=== PATIENT | female | born 1980 ===

== ENCOUNTER 2020-07-14 05:12 | Inpatient (IN) | payer OTHER ==
[2020-07-14] MEDS: Lactated Ringers 1,000 ML IV SCH ×2 (05:40→14:35)
[2020-07-14] MEDS ORDERED: Sodium Chloride 0.9% 2.5 ML Syringe FLUSH PRN (06:16)
[2020-07-14] MEDS ORDERED: Misoprostol 200 MCG Tab PO PRN (06:16)
[2020-07-14] MEDS ORDERED: Water For Irrigation,Sterile 1,000 ML Container IRR PRN (06:16)
[2020-07-14] MEDS ORDERED: Nalbuphine 10 MG/1 ML Vial IVPUSH PRN (06:16)
[2020-07-14] MEDS ORDERED: Terbutaline 1 MG/ML SDV SUBCUT PRN (06:16)
[2020-07-14] MEDS ORDERED: Ondansetron 4 MG/2 ML SDV IVPUSH PRN (06:16)
[2020-07-14] MEDS ORDERED: Sodium Chloride 0.9% 10 ML Syringe FLUSH PRN (06:16)
[2020-07-14] MEDS ORDERED: Carboprost Tromethamine 250 MCG/1 ML Amp IM PRN (06:16)
[2020-07-14] MEDS ORDERED: Tranexamic Acid 1,000 MG in Sodium Chloride 0.9% 100 ML IV PRN (06:16)
[2020-07-14] MEDS ORDERED: Butorphanol 1 MG/ML SDV IVPUSH PRN (06:16)
[2020-07-14] MEDS ORDERED: Lidocaine 1% 50 ML MDV INJECT PRN (06:16)
[2020-07-14] MEDS ORDERED: Methylergonovine 0.2 MG/1 ML Amp IM PRN (06:16)
[2020-07-14] MEDS ORDERED: Misoprostol 25 MCG (1/4 of 100 MCG) Tab VAG PRN ×2 (06:16)
[2020-07-14] MEDS ORDERED: Sodium Chloride 0.9% 10 ML SDV IV PRN (06:16)
[2020-07-14] MEDS ORDERED: Oxytocin/0.9 % Sodium Chloride 30 UNIT/500 ML BAG IV SCH ×2 (06:30)
[2020-07-14] MEDS ORDERED: Misoprostol 25 MCG (1/4 of 100 MCG) Tab PO ONE (06:41)
[2020-07-14] MEDS ORDERED: Misoprostol 25 MCG (1/4 of 100 MCG) Tab PO PRN (06:43)
[2020-07-14] MEDS ORDERED: fentaNYL 100 MCG/2 ML SDV ONE ×2 (11:07→21:14)
[2020-07-14] MEDS ORDERED: Ropivacaine HCl/PF 100 ML ONE ×2 (11:07→21:15)
--- NOTE | 2020-07-14 11:28 | PCM.PREANE ---
Preanesthetic Assessment - Anesthesia/Transfusion/Family Hx Anesthesia History: Prior Anesthesia Without Reaction Family History of Anesthesia Reaction: No - Physical Assessment NPO Status Date: 07/14/20 NPO Status Time: 10:00 Height: 1.75 m Weight: 120.202 kg ASA Class: 2 - Lab Values: Laboratory Last Values WBC 7.88 K/uL (4.0-11.0) 07/14/20 05:40 RBC 3.96 M/uL (4.30-5.90) L 07/14/20 05:40 Hgb 11.7 g/dL (12.0-16.0) L 07/14/20 05:40 Hct 35.5 % (36.0-46.0) L 07/14/20 05:40 MCV 89.6 fL (80.0-98.0) 07/14/20 05:40 MCH 29.5 pg (27.0-32.0) 07/14/20 05:40 MCHC 33.0 g/dL (31.0-37.0) 07/14/20 05:40 RDW Std Deviation 39.3 fl (28.0-62.0) 07/14/20 05:40 RDW Coeff of Deyanira 12 % (11.0-15.0) 07/14/20 05:40 Plt Count 243 K/uL (150-400) 07/14/20 05:40 MPV 10.80 fL (7.40-12.00) 07/14/20 05:40 Nucleated RBC % 0.0 /100WBC 07/14/20 05:40 Nucleated RBCs # 0 K/uL 07/14/20 05:40 Blood Type AB POSITIVE 07/14/20 05:40 Antibody Screen NEGATIVE 07/14/20 05:40 - Allergies Allergies/Adverse Reactions: Allergies Allergy/AdvReac Type Severity Reaction Status Date / Time Penicillins Allergy Mild Hives Verified 06/30/20 16:36 - Acknowledgements Anesthesia Type Planned: Epidural Pt an Appropriate Candidate for the Planned Anesthesia: Yes Alternatives and Risks of Anesthesia Discussed w Pt/Guardian: Yes Pt/Guardian Understands and Agrees with Anesthesia Plan: Yes PreAnesthesia Questionnaire - Past Health History Medical/Surgical History: Denies Medical/Surgical History [employer] History: Reports: Fibroids - Infectious Disease History Infectious Disease History: Reports: Chicken Pox - SUBSTANCE USE Tobacco Use Status *Q: Never Tobacco User Tobacco Use Within Last Twelve Months: No Second Hand Smoke Exposure: No Recreational Drug Use History: No - HOME MEDS Home Medications: Home Meds Vits #93/Iron Fum/FA [ Formula Tablet] 1 each PO BEDTIME 06/16/20 [History] - CURRENT (IN HOUSE) MEDS Current Meds: Current Medications Carboprost Tromethamine (Hemabate Ds) 250 mcg IM ASDIRECTED PRN PRN Reason: Post Hemorrhage Hydroxyzine HCl (Atarax) 50 mg PO BEDTIME ONE Stop: 07/14/20 21:01 Oxytocin/Sodium Chloride (Oxytocin 30 Unit/500 Ml-Ns) 30 unit in 500 mls @ 999 mls/hr IV TITRATE JACQUELINE Tranexamic Acid 1,000 mg/ (Sodium Chloride) 110 mls @ 660 mls/hr IV ONETIME PRN PRN Reason: Bleeding Oxytocin/Sodium Chloride (Oxytocin 30 Unit/500 Ml-Ns) 30 unit in 500 mls @ 2 mls/hr IV TITRATE JACQUELINE; Protocol Lactated Ringer's (Ringers, Lactated) 1,000 mls @ 150 mls/hr IV ASDIRECTED JACQUELINE Last Admin: 07/14/20 05:40 Dose: 150 mls/hr Documented by: Lidocaine HCl (Xylocaine 1%) 50 ml INJECT ONETIME PRN PRN Reason: Laceration repair Methylergonovine Maleate (Methergine) 0.2 mg IM ASDIRECTED PRN PRN Reason: Post Hemorrhage Misoprostol (Cytotec) 200 mcg PO ONETIME PRN PRN Reason: Post Hemorrhage Misoprostol (Cytotec) 25 mcg PO Q4H PRN PRN Reason: Cervical Ripening Misoprostol (Cytotec) 25 mcg VAG Q4H JACQUELINE Nalbuphine HCl (Nubain) 10 mg IVPUSH Q1H PRN PRN Reason: Pain (severe 7-10) Ondansetron HCl (Zofran) 4 mg IVPUSH Q6H PRN PRN Reason: Nausea/Vomiting Sodium Chloride (Saline Flush) 10 ml FLUSH ASDIRECTED PRN PRN Reason: Keep Vein Open Sodium Chloride (Saline Flush) 2.5 ml FLUSH ASDIRECTED PRN PRN Reason: Keep Vein Open Sodium Chloride (Normal Saline) 10 ml IV ASDIRECTED PRN PRN Reason: IV Use Sterile Water (Sterile Water For Irrigation) 1,000 ml IRR ASDIRECTED PRN PRN Reason: delivery Terbutaline Sulfate (Brethine) 0.25 mg SUBCUT ASDIRECTED PRN PRN Reason: Tacysystole Discontinued Medications Fentanyl (Sublimaze) Confirm Administered Dose 100 mcg .ROUTE .STK-MED ONE Stop: 07/14/20 11:08 Ropivacaine (Naropin 0.2%) Confirm Administered Dose 100 mls @ as directed .ROUTE .STK-MED ONE Stop: 07/14/20 11:08 Misoprostol (Cytotec) 25 mcg VAG ONETIME PRN PRN Reason: Cervical Ripening Misoprostol (Cytotec) 25 mcg VAG Q4H PRN PRN Reason: Cervical Ripening Misoprostol (Cytotec) 25 mcg PO ONETIME ONE Stop: 07/14/20 06:42 Last Admin: 07/14/20 07:44 Dose: 25 mcg Documented by:
--- NOTE | 2020-07-14 11:31 | PCM.PRNOTE ---
- Free Text/Narrative Note: Anes Note Patient requests epidural for L&D. Sitting position, level L3-L4 midline approach. Sterile technique. Chloraprep scrub to lumbar area. Sterile fenestrated drape applied. Epidural space easily achieved single attempt with ease using DONOVAN technique. DONOVAN at 3 cm. Cath threaded 5 cm with ease. Test 1118 3 cc 1.5% lido with epi negative. Load 1121 10 cc 0.2% ropiviciane with 1 mcg cc fentnayl in slow divided doses. 1125 Pump started with 90 cc same solution. Rate is 8 cc hr with 6 cc q 20 min prn bolus. Sydni well. Time with patient [id number] Silvio Boucher CRNA
[2020-07-14] MEDS ORDERED: Misoprostol 25 MCG (1/4 of 100 MCG) Tab VAG SCH (11:45)
--- NOTE | 2020-07-14 11:47 | PCM.LDHP ---
L&D History of Present Illness - General Date of Service: 07/14/20 Admit Problem/Dx: Patient Status Order with Admit Dx/Problem 07/14/20 06:33 Patient Status [ADT] Routine Admission Diagnosis/Problem Admission Diagnosis/Problem Source of Information: Patient History Limitations: Reports: No Limitations - History of Present Illness Introduction:: 39yo at 38w GA admitted for IOL. Patient has a h/o demise at 39wGA. This pregnacy was also c/b decreased movement and patient has had weekly BPP and NST. Today she declines VB, LOF or Ctx. Good FM labs: AB+, Abs screen -, RI, HepB NR, GBS - - Related Data Allergies/Adverse Reactions: Allergies Allergy/AdvReac Type Severity Reaction Status Date / Time Penicillins Allergy Mild Hives Verified 06/30/20 16:36 Home Medications: Home Meds Vits #93/Iron Fum/FA [ Formula Tablet] 1 each PO BEDTIME 06/16/20 [History] Past Medical History - Past Health History Medical/Surgical History: Denies Medical/Surgical History [employer] History: Reports: Fibroids - Infectious Disease History Infectious Disease History: Reports: Chicken Pox Social & Family History - Family History Family Medical History: No Pertinent Family History - Tobacco Use Tobacco Use Status *Q: Never Tobacco User Second Hand Smoke Exposure: No - Caffeine Use Caffeine Use: Reports: None - Recreational Drug Use Recreational Drug Use: No H&P Review of Systems - Review of Systems: Review Of Systems: See Below General: Reports: No Symptoms HEENT: Reports: No Symptoms Pulmonary: Reports: No Symptoms Cardiovascular: Reports: No Symptoms Gastrointestinal: Reports: No Symptoms Genitourinary: Reports: No Symptoms Musculoskeletal: Reports: No Symptoms Skin: Reports: No Symptoms Psychiatric: Reports: No Symptoms Neurological: Reports: No Symptoms Hematologic/Lymphatic: Reports: No Symptoms Immunologic: Reports: No Symptoms L&D Exam - Exam Exam: See Below - Vital Signs Weight: 120.202 kg - OB Specific Contraction Intensity: Mild Movement: Active Heart Tones: Present Heart Rate (FHR) Variability: Moderate (6-25 bmp) Presentation: Vertex Estimated Weight: 7lbs - Weeks Score Weeks Score Cervix Position: Midposition Weeks Score Consistency: Medium Weeks Score Effacement: 0-30% Weeks Score Dilation: 1-2 cm Weeks Score Infant's Station: -3 Weeks Score Total: 3 - Exam General: Alert, Oriented HEENT: Conjunctiva Clear, Mucosa Moist & [place] Lungs: Normal Respiratory Effort Cardiovascular: Regular Rate GI/Abdominal Exam: Soft, Non-Tender Extremities: Normal Inspection Psychiatric: Alert, Normal Affect, Normal Mood - Patient Data Lab Results Last 24 hrs: Laboratory Results - last 24 hr 07/14/20 07/14/20 Range/Units 05:40 05:40 WBC 7.88 (4.0-11.0) K/uL RBC 3.96 L (4.30-5.90) M/uL Hgb 11.7 L (12.0-16.0) g/dL Hct 35.5 L (36.0-46.0) % MCV 89.6 (80.0-98.0) fL MCH 29.5 (27.0-32.0) pg MCHC 33.0 (31.0-37.0) g/dL RDW Std Deviation 39.3 (28.0-62.0) fl RDW Coeff of Deyanira 12 (11.0-15.0) % Plt Count 243 (150-400) K/uL MPV 10.80 (7.40-12.00) fL Nucleated RBC % 0.0 /100WBC Nucleated RBCs # 0 K/uL Blood Type AB POSITIVE Antibody Screen NEGATIVE Result Diagrams: 07/14/20 05:40 - Problem List (1) Term SNOMED Code(s): 29557917 ICD Code: Z34.90 - ENCNTR FOR SUPRVSN OF NORMAL , UNSP, UNSP TRIMESTER Status: Acute Current Visit: Yes (2) Elective induction of labor planned SNOMED Code(s): 768994673 ICD Code: SIO7718 - Status: Acute Current Visit: Yes Problem List Initiated/Reviewed/Updated: Yes Orders Last 24hrs: Active Orders 24 hr Category Date Time Status Patient Status [ADT] Routine ADT 07/14/20 06:33 Active Bedrest Bathroom Privileges [RC] ASDIRECTED Care 07/14/20 06:33 Active Communication Order [RC] ASDIRECTED Care 07/14/20 06:33 Active Communication Order [RC] ASDIRECTED Care 07/14/20 06:33 Active Communication Order [RC] ASDIRECTED Care 07/14/20 06:33 Active Heart Tones [RC] CONTINUOUS Care 07/14/20 06:33 Active Non Stress Test [RC] PER UNIT ROUTINE Care 07/14/20 06:33 Active May Shower [RC] ASDIRECTED Care 07/14/20 06:33 Active Notify Provider [RC] PRN Care 07/14/20 06:33 Active Notify Provider [RC] PRN Care 07/14/20 06:33 Active Notify Provider [RC] PRN Care 07/14/20 06:33 Active Notify Provider [RC] STAT Care 07/14/20 06:33 Active Oxygen Therapy [RC] ASDIRECTED Care 07/14/20 06:33 Active Up ad Halima [RC] ASDIRECTED Care 07/14/20 06:33 Active Vaginal Exam [RC] PRN Care 07/14/20 06:33 Active Vaginal Exam [RC] PRN Care 07/14/20 06:33 Active Vital Signs [RC] PER UNIT ROUTINE Care 07/14/20 06:33 Active Vital Signs [RC] PER UNIT ROUTINE Care 07/14/20 06:33 Active RPR (SYPHILIS SERO) W/ RFLX [REF] Routine Lab 07/14/20 05:40 Received Carboprost Tromethamine [Hemabate DS] Med 07/14/20 06:16 Active 250 mcg IM ASDIRECTED PRN Lactated Ringers [Ringers, Lactated] 1,000 ml Med 07/14/20 06:30 Active IV ASDIRECTED Lidocaine 1% [Xylocaine 1%] Med 07/14/20 06:16 Active 50 ml INJECT ONETIME PRN Methylergonovine [Methergine] Med 07/14/20 06:16 Active 0.2 mg IM ASDIRECTED PRN Nalbuphine [Nubain] Med 07/14/20 06:16 Active 10 mg IVPUSH Q1H PRN Ondansetron [Zofran] Med 07/14/20 06:16 Active 4 mg IVPUSH Q6H PRN Oxytocin/0.9 % Sodium Chloride [Oxytocin 30 Unit/500 ML Med 07/14/20 06:30 Active -NS] 30 unit in 500 ml IV TITRATE Oxytocin/0.9 % Sodium Chloride [Oxytocin 30 Unit/500 ML Med 07/14/20 06:30 Active -NS] 30 unit in 500 ml IV TITRATE Sodium Chloride 0.9% [Normal Saline] Med 07/14/20 06:16 Active 10 ml IV ASDIRECTED PRN Sodium Chloride 0.9% [Saline Flush] Med 07/14/20 06:16 Active 10 ml FLUSH ASDIRECTED PRN Sodium Chloride 0.9% [Saline Flush] Med 07/14/20 06:16 Active 2.5 ml FLUSH ASDIRECTED PRN Terbutaline [Brethine] Med 07/14/20 06:16 Active 0.25 mg SUBCUT ASDIRECTED PRN Tranexamic Acid [Cyklokapron] 1,000 mg Med 07/14/20 06:16 Active Sodium Chloride 0.9% [Normal Saline] 100 ml IV ONETIME Water For Irrigation,Sterile [Sterile Water for Med 07/14/20 06:16 Active Irrigation] 1,000 ml IRR ASDIRECTED PRN hydrOXYzine HCL [Atarax] Med 07/14/20 21:00 Once 50 mg PO BEDTIME ONE miSOPROStoL [Cytotec] Med 07/14/20 06:16 Active 200 mcg PO ONETIME PRN miSOPROStoL [Cytotec] Med 07/14/20 06:43 Active 25 mcg PO Q4H PRN miSOPROStoL [Cytotec] Med 07/14/20 11:45 Active 25 mcg VAG Q4H Scalp Electrode [WOMSER] Per Unit Routine Oth 07/14/20 06:33 Ordered Medication Administration Instruction [OM.PC] Q3H Oth 07/14/20 06:45 Ordered Peripheral IV Insertion Adult [OM.PC] Routine Oth 07/14/20 06:33 Ordered Resuscitation Status Routine Resus Stat 07/14/20 06:16 Ordered Medication Orders Carboprost Tromethamine (Hemabate Ds) 250 mcg IM ASDIRECTED PRN PRN Reason: Post Hemorrhage Hydroxyzine HCl (Atarax) 50 mg PO BEDTIME ONE Stop: 07/14/20 21:01 Oxytocin/Sodium Chloride (Oxytocin 30 Unit/500 Ml-Ns) 30 unit in 500 mls @ 999 mls/hr IV TITRATE JACQUELINE Tranexamic Acid 1,000 mg/ (Sodium Chloride) 110 mls @ 660 mls/hr IV ONETIME PRN PRN Reason: Bleeding Oxytocin/Sodium Chloride (Oxytocin 30 Unit/500 Ml-Ns) 30 unit in 500 mls @ 2 mls/hr IV TITRATE JACQUELINE; Protocol Lactated Ringer's (Ringers, Lactated) 1,000 mls @ 150 mls/hr IV ASDIRECTED JACQUELINE Last Admin: 07/14/20 05:40 Dose: 150 mls/hr Documented by: ANDRÉS Lidocaine HCl (Xylocaine 1%) 50 ml INJECT ONETIME PRN PRN Reason: Laceration repair Methylergonovine Maleate (Methergine) 0.2 mg IM ASDIRECTED PRN PRN Reason: Post Hemorrhage Misoprostol (Cytotec) 200 mcg PO ONETIME PRN PRN Reason: Post Hemorrhage Misoprostol (Cytotec) 25 mcg PO Q4H PRN PRN Reason: Cervical Ripening Misoprostol (Cytotec) 25 mcg VAG Q4H JACQUELINE Nalbuphine HCl (Nubain) 10 mg IVPUSH Q1H PRN PRN Reason: Pain (severe 7-10) Ondansetron HCl (Zofran) 4 mg IVPUSH Q6H PRN PRN Reason: Nausea/Vomiting Sodium Chloride (Saline Flush) 10 ml FLUSH ASDIRECTED PRN PRN Reason: Keep Vein Open Sodium Chloride (Saline Flush) 2.5 ml FLUSH ASDIRECTED PRN PRN Reason: Keep Vein Open Sodium Chloride (Normal Saline) 10 ml IV ASDIRECTED PRN PRN Reason: IV Use Sterile Water (Sterile Water For Irrigation) 1,000 ml IRR ASDIRECTED PRN PRN Reason: delivery Terbutaline Sulfate (Brethine) 0.25 mg SUBCUT ASDIRECTED PRN PRN Reason: Tacysystole Assessment/Plan Comment:: 39yo here for IOL secondary to h/o demise at 39wGA and decreased FM this . Reactive strip. Weeks score of 3 Discussed the labor induction processed, including the off-label use of cytotec. Discussed risks and benefits. Patient agreeable to the plan. Will start with cytotec, then oxytocin PRN Epidural PRN
[2020-07-14] MEDS ORDERED: hydrOXYzine HCl 25 MG Tab PO ONE (21:00)
--- NOTE | 2020-07-14 21:28 | PCM.PRNOTE ---
- Free Text/Narrative Note: Anes Note I was called to refill the epidural infusion. A new 100 cc bag of 0.2% ropiviciane with 1 mcg/cc fentanyl was placed. Rate is 8 cc hr with 6 cc q 20 min prn bolus. Patient reports excellent analgesia. Time with patient [id number] Silvio Boucher CRNA
[2020-07-15] MEDS ORDERED: Ibuprofen 400 MG Tab PO PRN (00:56)
[2020-07-15] MEDS ORDERED: Witch Hazel Medicated Pads 40/Jar TOP PRN (00:56)
[2020-07-15] MEDS ORDERED: oxyCODONE 5 MG Tab PO PRN (00:56)
[2020-07-15] MEDS ORDERED: Lanolin 100% Cream 7 GM Tube TOP PRN (00:56)
[2020-07-15] MEDS ORDERED: Docusate Sodium 100 MG Cap PO PRN (00:56)
[2020-07-15] MEDS ORDERED: Benzocaine/Menthol 20%-0.5% Spray 78 GM Cannister TOP PRN (00:56)
[2020-07-15] MEDS ORDERED: Bisacodyl 10 MG Supp RECTAL PRN (00:56)
[2020-07-15] MEDS ORDERED: Acetaminophen 500 MG Tab PO PRN ×2 (00:56)
--- NOTE | 2020-07-15 07:52 | PCM48HPAN ---
Post Anesthesia Note - EVALUATION WITHIN 48HRS OF ANESTHETIC Vital Signs in Normal Range: Yes Patient Participated in Evaluation: Yes Respiratory Function Stable: Yes Airway Patent: Yes Cardiovascular Function Stable: Yes Hydration Status Stable: Yes Pain Control Satisfactory: Yes Nausea and Vomiting Control Satisfactory: Yes Mental Status Recovered: Yes - COMMENTS/OBSERVATIONS Free Text/Narrative:: full sensation in legs bilaterally
[2020-07-15] MEDS: Ibuprofen 800 MG Tab PO PRN (08:23)
--- NOTE | 2020-07-15 12:13 | PCM.PNPP ---
- General Info Date of Service: 07/15/20 Admission Dx/Problem (Free Text): Patient Status Order with Admit Dx/Problem 07/14/20 06:33 Patient Status [ADT] Routine Admission Diagnosis/Problem Admission Diagnosis/Problem Subjective Update: Doing well; reports bottle feeding and bonding well with baby; ambulating, urinating, and tolerating diet; small lochia rubra. NO concerns/questions at this time. Functional Status: Reports: Pain Controlled, Tolerating Diet, Ambulating, Urinating - Review of Systems General: Reports: No Symptoms HEENT: Reports: No Symptoms Pulmonary: Reports: No Symptoms Cardiovascular: Reports: No Symptoms Gastrointestinal: Reports: No Symptoms Genitourinary: Reports: No Symptoms Musculoskeletal: Reports: No Symptoms Skin: Reports: No Symptoms Neurological: Reports: No Symptoms Psychiatric: Reports: No Symptoms - General Info Date of Service: 07/15/20 - Patient Data Vital Signs - Most Recent: Last Vital Signs Temp 97.5 F 07/15/20 00:56 Pulse 82 07/15/20 00:56 Resp 18 07/15/20 00:56 BP 135/80 07/15/20 00:56 Pulse Ox 95 07/15/20 00:56 Weight - Most Recent: 265 lb I&O - Last 24 Hours: Intake & Output 07/14/20 07/15/20 07/15/20 22:59 06:59 14:59 Intake Total 1390 Balance 1390 Med Orders - Current: Current Medications Acetaminophen (Tylenol Extra Strength) 500 mg PO Q4H PRN PRN Reason: Pain Acetaminophen (Tylenol Extra Strength) 1,000 mg PO Q4H PRN PRN Reason: Pain Benzocaine/Menthol (Dermoplast Pain Relief 20%-0.5% Valm[place]) 78 gm TOP ASDIRECTED PRN PRN Reason: Perineal Comfort Measure Last Admin: 07/15/20 03:01 Dose: 1 bottle Documented by: Bisacodyl (Dulcolax) 10 mg RECTAL ONETIME PRN PRN Reason: Constipation Carboprost Tromethamine (Hemabate Ds) 250 mcg IM ASDIRECTED PRN PRN Reason: Post Hemorrhage Docusate Sodium (Colace) 100 mg PO BID PRN PRN Reason: Constipation Emollient Ointment (Lansinoh Hpa) 0 gm TOP ASDIRECTED PRN PRN Reason: Sore Nipples Oxytocin/Sodium Chloride (Oxytocin 30 Unit/500 Ml-Ns) 30 unit in 500 mls @ 999 mls/hr IV TITRATE JACQUELINE Tranexamic Acid 1,000 mg/ (Sodium Chloride) 110 mls @ 660 mls/hr IV ONETIME PRN PRN Reason: Bleeding Oxytocin/Sodium Chloride (Oxytocin 30 Unit/500 Ml-Ns) 30 unit in 500 mls @ 2 mls/hr IV TITRATE JACQUELINE; Protocol Last Titration: 07/15/20 00:23 Dose: 999 munits/min, 999 mls/hr Documented by: Lactated Ringer's (Ringers, Lactated) 1,000 mls @ 150 mls/hr IV ASDIRECTED JACQUELINE Last Infusion: 07/15/20 00:45 Dose: Infused Documented by: Ibuprofen (Motrin) 400 mg PO Q4H PRN PRN Reason: Pain Ibuprofen (Motrin) 800 mg PO Q6H PRN PRN Reason: Pain Last Admin: 07/15/20 08:23 Dose: 800 mg Documented by: Lidocaine HCl (Xylocaine 1%) 50 ml INJECT ONETIME PRN PRN Reason: Laceration repair Methylergonovine Maleate (Methergine) 0.2 mg IM ASDIRECTED PRN PRN Reason: Post Hemorrhage Misoprostol (Cytotec) 200 mcg PO ONETIME PRN PRN Reason: Post Hemorrhage Misoprostol (Cytotec) 25 mcg PO Q4H PRN PRN Reason: Cervical Ripening Misoprostol (Cytotec) 25 mcg VAG Q4H [facility] Nalbuphine HCl (Nubain) 10 mg IVPUSH Q1H PRN PRN Reason: Pain (severe 7-10) Ondansetron HCl (Zofran) 4 mg IVPUSH Q6H PRN PRN Reason: Nausea/Vomiting Oxycodone HCl (Oxycodone) 5 mg PO Q2H PRN PRN Reason: Pain Sodium Chloride (Saline Flush) 10 ml FLUSH ASDIRECTED PRN PRN Reason: Keep Vein Open Sodium Chloride (Saline Flush) 2.5 ml FLUSH ASDIRECTED PRN PRN Reason: Keep Vein Open Sodium Chloride (Normal Saline) 10 ml IV ASDIRECTED PRN PRN Reason: IV Use Sterile Water (Sterile Water For Irrigation) 1,000 ml IRR ASDIRECTED PRN PRN Reason: delivery Terbutaline Sulfate (Brethine) 0.25 mg SUBCUT ASDIRECTED PRN PRN Reason: Tacysystole Molly You (Tucks) 1 pad TOP ASDIRECTED PRN PRN Reason: comfort care Last Admin: 07/15/20 03:00 Dose: 1 bottle Documented by: Discontinued Medications Fentanyl (Sublimaze) Confirm Administered Dose 100 mcg .ROUTE .STK-MED ONE Stop: 07/14/20 11:08 Last Admin: 07/15/20 08:39 Dose: Not Given Documented by: Fentanyl (Sublimaze) Confirm Administered Dose 100 mcg .ROUTE .STK-MED ONE Stop: 07/14/20 21:15 Last Admin: 07/15/20 08:39 Dose: Not Given Documented by: Hydroxyzine HCl (Atarax) 50 mg PO BEDTIME ONE Stop: 07/14/20 21:01 Ropivacaine (Naropin 0.2%) Confirm Administered Dose 100 mls @ as directed .ROUTE .STK-MED ONE Stop: 07/14/20 11:08 Last Admin: 07/15/20 08:39 Dose: Not Given Documented by: Ropivacaine (Naropin 0.2%) Confirm Administered Dose 100 mls @ as directed .ROUTE .STK-MED ONE Stop: 07/14/20 21:16 Last Admin: 07/15/20 08:37 Dose: Not Given Documented by: Misoprostol (Cytotec) 25 mcg VAG ONETIME PRN PRN Reason: Cervical Ripening Misoprostol (Cytotec) 25 mcg VAG Q4H PRN PRN Reason: Cervical Ripening Misoprostol (Cytotec) 25 mcg PO ONETIME ONE Stop: 07/14/20 06:42 Last Admin: 07/14/20 07:44 Dose: 25 mcg Documented by: - Infant Interaction Infant Disposition, : [place] in Room with Family Infant Interaction: Holding Feeding: Bottle Fed Support Person: - Recovery Exam Fundal Tone: Firm Fundal Level: At Umbilicus Fundal Placement: Midline Lochia Amount: Scant Lochia Color: Rubra/Red Perineum Description: Intact, Minimal Bruising/Swelling, Other (see below) Other Perinuem Description: 1st degree laceration Episiotomy/Laceration: Approximated Bladder Status: Voiding - Exam General: Alert, Oriented, Cooperative, No Acute Distress Lungs: Normal Respiratory Effort Cardiovascular: Regular Rate, Regular Rhythm GI/Abdominal Exam: Soft, Non-Tender Skin: Warm, Dry, Intact Neurological: No New Focal Deficit, Normal Speech, Normal Tone, Sensation Intact Psy/Mental Status: Alert, Normal Affect, Normal Mood - Problem List & Annotations (1) (spontaneous vaginal delivery) SNOMED Code(s): 223364937 Code(s): O80 - ENCOUNTER FOR FULL-TERM UNCOMPLICATED DELIVERY Status: Acute Priority: High Current Visit: Yes - Problem List Review Problem List Initiated/Reviewed/Updated: Yes - Plan Plan:: 39yo here for IOL secondary to h/o demise at 39wGA and decreased FM this . Reactive strip. Weeks score of 3 Discussed the labor induction processed, including the off-label use of cytotec. Discussed risks and benefits. Patient agreeable to the plan. Will start with cytotec, then oxytocin PRN Epidural PRN PP Day 1 A: Doing well; bottle feeding and bonding well with baby; small lochia rubra. Ambulating, tolerating diet, and urintating. No concerns/questions at this time. P: Routine plan of care; anticipate discharge tomorrow; Dr. Gonzalez updated.
--- NOTE | 2020-07-15 13:13 | PCM.DEL ---
L & D Note - General Info Date of Service: 07/15/20 Mother's Due Date: 07/28/20 - Delivery Note Labor: Augmented by Oxytocin Cervical Ripening Method: Misoprostil, Oxytocin Delivery Outcome: Livebirth Delivery Method: Spontaneous Vaginal Delivery-Single Delivery Mode: Spontaneous Presentation: Vertex Nuchal Cord: Present Anesthesia Type: Epidural Amniotic Fluid Description: Clear Episiotomy Type: None Laceration: 1st Degree Suture type: Vicryl Suture size: 3-0 Placenta: Intact, Spontaneous Cord: 3 Vessels Estimated Blood Loss: 200 Resuscitation Needed: No Score 1 min: 8 Score 5 min: 9 Delivery Comments (Free Text/Narrative):: 39yo G4 now P3012 s/p uncomplicated vaginal delivery at 38w1d GA after IOL for AMA and decreased movement. Of note, patient has a history of demise at 39wGA care uncomplicated otherwise. Induction was started with cytotec for cervical ripening. Pitocin followed for augmentation. Patient SROM around 11:30pm, clear fluid, and the vaginal exam was 4/50/-2 at that time. At 12:15am, nurse called provider stating patient was 9cm. By the time provider arrived at 12:25am, baby was delivered, under the care of [facility] (Dr Jones) who was in the building at that time. Provider took over for the remainder of the procedure. Normal spontaneous vaginal delivery of live male or male infant, over intact perineum with epidural anesthesia. Presence of 1 loose nuchal cord that was reduced. Spontaneous delivery of placenta with 3-vessel cord. First degree vaginal floor laceration which was repaired using a 3-0 vicryl suture. Delivery details: Male born at 12:23am Weight: 7lbs 1oz : 8/9 EBL 200cc Induction Criteria - Weeks Score Weeks Score Dilation: 1-2 cm Weeks Score Effacement: 0-30% Weeks Score 's Station: -3 Weeks Score Consistency: Medium Weeks Score Cervix Position: Midposition Weeks Score Total: 3 Weeks Score Presenting Part: Reports: Cephalic - Induction Gestational Age >/= 39 wks: No Medical Indication: AMA. Decreased Movement H/o demise at 39w GA Estimated Pelvis: Reports: Adequate Reassuring Monitoring Strip: Yes Absence of Tachy Systole: Yes - Augmentation Estimated Pelvis: Reports: Adequate Weight Estimated:: Reports: AGA Estimated Weight if LGA: 7 kg Reassuring Monitoring Strip: Yes Absence of Tachy Systole: Yes - General Info Date of Service: 07/15/20 Functional Status: Reports: Pain Controlled - Review of Systems General: Reports: No Symptoms HEENT: Reports: No Symptoms Pulmonary: Reports: No Symptoms Cardiovascular: Reports: No Symptoms Gastrointestinal: Reports: No Symptoms Genitourinary: Reports: No Symptoms Musculoskeletal: Reports: No Symptoms Skin: Reports: No Symptoms Neurological: Reports: No Symptoms Psychiatric: Reports: No Symptoms - Patient Data Vitals - Most Recent: Last Vital Signs Temp 97.5 F 07/15/20 00:56 Pulse 82 07/15/20 00:56 Resp 18 07/15/20 00:56 BP 135/80 07/15/20 00:56 Pulse Ox 95 07/15/20 00:56 Weight - Most Recent: 120.202 kg I&O - Last 24 Hours: Intake & Output 07/14/20 07/15/20 07/15/20 22:59 06:59 14:59 Intake Total 1390 Balance 1390 Med Orders - Current: Current Medications Acetaminophen (Tylenol Extra Strength) 500 mg PO Q4H PRN PRN Reason: Pain Acetaminophen (Tylenol Extra Strength) 1,000 mg PO Q4H PRN PRN Reason: Pain Benzocaine/Menthol (Dermoplast Pain Relief 20%-0.5% [place]) 78 gm TOP ASDIRECTED PRN PRN Reason: Perineal Comfort Measure Last Admin: 07/15/20 03:01 Dose: 1 bottle Documented by: Bisacodyl (Dulcolax) 10 mg RECTAL ONETIME PRN PRN Reason: Constipation Carboprost Tromethamine (Hemabate Ds) 250 mcg IM ASDIRECTED PRN PRN Reason: Post Hemorrhage Docusate Sodium (Colace) 100 mg PO BID PRN PRN Reason: Constipation Emollient Ointment (Lansinoh Hpa) 0 gm TOP ASDIRECTED PRN PRN Reason: Sore Nipples Oxytocin/Sodium Chloride (Oxytocin 30 Unit/500 Ml-Ns) 30 unit in 500 mls @ 999 mls/hr IV TITRATE JACQUELINE Tranexamic Acid 1,000 mg/ (Sodium Chloride) 110 mls @ 660 mls/hr IV ONETIME PRN PRN Reason: Bleeding Oxytocin/Sodium Chloride (Oxytocin 30 Unit/500 Ml-Ns) 30 unit in 500 mls @ 2 mls/hr IV TITRATE JACQUELINE; Protocol Last Titration: 07/15/20 00:23 Dose: 999 munits/min, 999 mls/hr Documented by: Lactated Ringer's (Ringers, Lactated) 1,000 mls @ 150 mls/hr IV ASDIRECTED JACQUELINE Last Infusion: 07/15/20 00:45 Dose: Infused Documented by: Ibuprofen (Motrin) 400 mg PO Q4H PRN PRN Reason: Pain Ibuprofen (Motrin) 800 mg PO Q6H PRN PRN Reason: Pain Last Admin: 07/15/20 08:23 Dose: 800 mg Documented by: Lidocaine HCl (Xylocaine 1%) 50 ml INJECT ONETIME PRN PRN Reason: Laceration repair Methylergonovine Maleate (Methergine) 0.2 mg IM ASDIRECTED PRN PRN Reason: Post Hemorrhage Misoprostol (Cytotec) 200 mcg PO ONETIME PRN PRN Reason: Post Hemorrhage Misoprostol (Cytotec) 25 mcg PO Q4H PRN PRN Reason: Cervical Ripening Misoprostol (Cytotec) 25 mcg VAG Q4H JACQUELINE Nalbuphine HCl (Nubain) 10 mg IVPUSH Q1H PRN PRN Reason: Pain (severe 7-10) Ondansetron HCl (Zofran) 4 mg IVPUSH Q6H PRN PRN Reason: Nausea/Vomiting Oxycodone HCl (Oxycodone) 5 mg PO Q2H PRN PRN Reason: Pain Sodium Chloride (Saline Flush) 10 ml FLUSH ASDIRECTED PRN PRN Reason: Keep Vein Open Sodium Chloride (Saline Flush) 2.5 ml FLUSH ASDIRECTED PRN PRN Reason: Keep Vein Open Sodium Chloride (Normal Saline) 10 ml IV ASDIRECTED PRN PRN Reason: IV Use Sterile Water (Sterile Water For Irrigation) 1,000 ml IRR ASDIRECTED PRN PRN Reason: delivery Terbutaline Sulfate (Brethine) 0.25 mg SUBCUT ASDIRECTED PRN PRN Reason: Tacysystole Witch [place] (Tucks) 1 pad TOP ASDIRECTED PRN PRN Reason: comfort care Last Admin: 07/15/20 03:00 Dose: 1 bottle Documented by: Discontinued Medications Fentanyl (Sublimaze) Confirm Administered Dose 100 mcg .ROUTE .STK-MED ONE Stop: 07/14/20 11:08 Last Admin: 07/15/20 08:39 Dose: Not Given Documented by: Fentanyl (Sublimaze) Confirm Administered Dose 100 mcg .ROUTE .STK-MED ONE Stop: 07/14/20 21:15 Last Admin: 07/15/20 08:39 Dose: Not Given Documented by: Hydroxyzine HCl (Atarax) 50 mg PO BEDTIME ONE Stop: 07/14/20 21:01 Ropivacaine (Naropin 0.2%) Confirm Administered Dose 100 mls @ as directed .ROUTE .STK-MED ONE Stop: 07/14/20 11:08 Last Admin: 07/15/20 08:39 Dose: Not Given Documented by: Ropivacaine (Naropin 0.2%) Confirm Administered Dose 100 mls @ as directed .ROUTE .STK-MED ONE Stop: 07/14/20 21:16 Last Admin: 07/15/20 08:37 Dose: Not Given Documented by: Misoprostol (Cytotec) 25 mcg VAG ONETIME PRN PRN Reason: Cervical Ripening Misoprostol (Cytotec) 25 mcg VAG Q4H PRN PRN Reason: Cervical Ripening Misoprostol (Cytotec) 25 mcg PO ONETIME ONE Stop: 07/14/20 06:42 Last Admin: 07/14/20 07:44 Dose: 25 mcg Documented by: - Exam General: Alert, Oriented Neck: Supple Lungs: Normal Respiratory Effort Cardiovascular: Regular Rate GI/Abdominal Exam: Soft (Female) Exam: Normal External Exam Extremities: Normal Inspection, No Pedal Edema - Problem List & Annotations (1) Term SNOMED Code(s): 40803913 Code(s): Z34.90 - ENCNTR FOR SUPRVSN OF NORMAL , UNSP, UNSP TRIMESTER Status: Acute Current Visit: Yes (2) Elective induction of labor planned SNOMED Code(s): 650690111 Code(s): VMC7764 - Status: Acute Current Visit: Yes - Problem List Review Problem List Initiated/Reviewed/Updated: Yes - My Orders Last 24 Hours: My Active Orders 07/15/20 00:56 Patient Status [ADT] Routine May Shower [RC] ASDIRECTED Up ad Halima [RC] ASDIRECTED Vital Signs [RC] PER UNIT ROUTINE Acetaminophen [Tylenol Extra Strength] 1,000 mg PO Q4H PRN Acetaminophen [Tylenol Extra Strength] 500 mg PO Q4H PRN Benzocaine/Menthol [Dermoplast Pain Relief 20%-0.5% [place]] 78 gm TOP ASDIRECTED PRN Docusate Sodium [Colace] 100 mg PO BID PRN Ibuprofen [Motrin] 400 mg PO Q4H PRN Ibuprofen [Motrin] 800 mg PO Q6H PRN Lanolin [Lansinoh HPA] See Dose Instructions TOP ASDIRECTED PRN bisacodyL [Dulcolax] 10 mg RECTAL ONETIME PRN oxyCODONE 5 mg PO Q2H PRN witch Tate [Tucks] 1 pad TOP ASDIRECTED PRN Assess Lochia [WOMSER] Per Unit Routine Assess Uterine Involution [WOMSER] Per Unit Routine Peripheral IV Discontinue [OM.PC] Routine 07/16/20 05:11 HEMOGLOBIN/HEMATOCRIT,HH [HEME] Timed - Plan Plan:: 39yo G4 now P2012 after IOL at 38w GA secondary to h/o demise at 39wGA and decreased FM this . S/P uncomplicated vaginal delivery. Baby and Mother and doing well. Continue with routine care.
--- NOTE | 2020-07-16 07:48 | PCM.DCSUM1 ---
Discharge Summary - Hospital Course Free Text/Narrative:: Discharge home with baby. Follow up in the clinic in six weeks for routine visit; sooner, if needed. Diagnosis: Stroke: No Modified [place] Scale: No Symptoms at All Modified [place] Scale Score: 0 - Discharge Data Discharge Date: 07/16/20 Discharge Disposition: Home, Self-Care 01 Condition: Good - Referral to Home Health Primary Care Physician: PCP None - Discharge Diagnosis/Problem(s) (1) (spontaneous vaginal delivery) SNOMED Code(s): 947159061 ICD Code: O80 - ENCOUNTER FOR FULL-TERM UNCOMPLICATED DELIVERY Status: Acute Priority: High Current Visit: Yes - Patient Instructions Diet: Regular Diet as Tolerated, Drink 8-10+ Glasses/Day Activity: As Tolerated, No Strenuous Activities, Rest and Relax Today Driving: May Drive Today Showering/Bathing: May Shower Notify Provider of: Fever, Increased Pain, Swelling and Redness, Drainage, Nausea and/or Vomiting - Discharge Plan *PRESCRIPTION DRUG MONITORING PROGRAM REVIEWED*: Not Applicable *COPY OF PRESCRIPTION DRUG MONITORING REPORT IN PATIENT ALEX: Not Applicable Prescriptions/Med Rec: Ibuprofen [Motrin] 800 mg PO Q6H PRN #90 tablet PRN Reason: Pain Home Medications: Home Meds Vits #93/Iron Fum/FA [ Formula Tablet] 1 each PO BEDTIME 11/29 [History] Ibuprofen [Motrin] 800 mg PO Q6H PRN #90 tablet 07/16/20 [Rx] Oxygen Therapy Mode: Room Air Referrals: [facility] [Outside] Fatimah Massey, [place], [employer] [Mid-] - 08/26/20 2:00 pm (Your post appointment is on 08/26/20 at 2:00 pm with Fatimah Massey. Masks are required.) - Discharge Summary/Plan Comment DC Time >30 min.: Yes - General Info Date of Service: 07/16/20 Admission Dx/Problem (Free Text: Patient Status Order with Admit Dx/Problem 07/14/20 06:33 Patient Status [ADT] Routine Admission Diagnosis/Problem Admission Diagnosis/Problem Functional Status: Reports: Pain Controlled, Tolerating Diet, Ambulating, Urinating - Review of Systems General: Reports: No Symptoms HEENT: Reports: No Symptoms Pulmonary: Reports: No Symptoms Cardiovascular: Reports: No Symptoms Gastrointestinal: Reports: No Symptoms Genitourinary: Reports: No Symptoms Musculoskeletal: Reports: No Symptoms Skin: Reports: No Symptoms Neurological: Reports: No Symptoms Psychiatric: Reports: No Symptoms - Patient Data Vitals - Most Recent: Last Vital Signs Temp 97.4 F 07/16/20 04:48 Pulse 85 07/16/20 04:48 Resp 16 07/16/20 04:48 BP 124/62 07/16/20 04:48 Pulse Ox 96 07/16/20 04:48 Weight - Most Recent: 265 lb Lab Results - Last 24 hrs: Laboratory Results - last 24 hr 07/16/20 Range/Units 04:45 Hgb 10.9 L (12.0-16.0) g/dL Hct 33.3 L (36.0-46.0) % Med Orders - Current: Current Medications Acetaminophen (Tylenol Extra Strength) 500 mg PO Q4H PRN PRN Reason: Pain Acetaminophen (Tylenol Extra Strength) 1,000 mg PO Q4H PRN PRN Reason: Pain Last Admin: 07/15/20 13:50 Dose: 1,000 mg Documented by: Benzocaine/Menthol (Dermoplast Pain Relief 20%-0.5% [place]) 78 gm TOP ASDIRECTED PRN PRN Reason: Perineal Comfort Measure Last Admin: 07/15/20 03:01 Dose: 1 bottle Documented by: Bisacodyl (Dulcolax) 10 mg RECTAL ONETIME PRN PRN Reason: Constipation Carboprost Tromethamine (Hemabate Ds) 250 mcg IM ASDIRECTED PRN PRN Reason: Post Hemorrhage Docusate Sodium (Colace) 100 mg PO BID PRN PRN Reason: Constipation Emollient Ointment (Lansinoh Hpa) 0 gm TOP ASDIRECTED PRN PRN Reason: Sore Nipples Oxytocin/Sodium Chloride (Oxytocin 30 Unit/500 Ml-Ns) 30 unit in 500 mls @ 999 mls/hr IV TITRATE JACQUELINE Tranexamic Acid 1,000 mg/ (Sodium Chloride) 110 mls @ 660 mls/hr IV ONETIME PRN PRN Reason: Bleeding Oxytocin/Sodium Chloride (Oxytocin 30 Unit/500 Ml-Ns) 30 unit in 500 mls @ 2 mls/hr IV TITRATE JACQUELINE; Protocol Last Titration: 07/15/20 00:23 Dose: 999 munits/min, 999 mls/hr Documented by: Lactated Ringer's (Ringers, Lactated) 1,000 mls @ 150 mls/hr IV ASDIRECTED JACQUELINE Last Infusion: 07/15/20 00:45 Dose: Infused Documented by: Ibuprofen (Motrin) 400 mg PO Q4H PRN PRN Reason: Pain Ibuprofen (Motrin) 800 mg PO Q6H PRN PRN Reason: Pain Last Admin: 07/15/20 08:23 Dose: 800 mg Documented by: Lidocaine HCl (Xylocaine 1%) 50 ml INJECT ONETIME PRN PRN Reason: Laceration repair Methylergonovine Maleate (Methergine) 0.2 mg IM ASDIRECTED PRN PRN Reason: Post Hemorrhage Misoprostol (Cytotec) 200 mcg PO ONETIME PRN PRN Reason: Post Hemorrhage Misoprostol (Cytotec) 25 mcg PO Q4H PRN PRN Reason: Cervical Ripening Misoprostol (Cytotec) 25 mcg VAG Q4H JACQUELINE Nalbuphine HCl (Nubain) 10 mg IVPUSH Q1H PRN PRN Reason: Pain (severe 7-10) Ondansetron HCl (Zofran) 4 mg IVPUSH Q6H PRN PRN Reason: Nausea/Vomiting Oxycodone HCl (Oxycodone) 5 mg PO Q2H PRN PRN Reason: Pain Sodium Chloride (Saline Flush) 10 ml FLUSH ASDIRECTED PRN PRN Reason: Keep Vein Open Sodium Chloride (Saline Flush) 2.5 ml FLUSH ASDIRECTED PRN PRN Reason: Keep Vein Open Sodium Chloride (Normal Saline) 10 ml IV ASDIRECTED PRN PRN Reason: IV Use Sterile Water (Sterile Water For Irrigation) 1,000 ml IRR ASDIRECTED PRN PRN Reason: delivery Terbutaline Sulfate (Brethine) 0.25 mg SUBCUT ASDIRECTED PRN PRN Reason: Tacysystole Witch [place] (Tucks) 1 pad TOP ASDIRECTED PRN PRN Reason: comfort care Last Admin: 07/15/20 03:00 Dose: 1 bottle Documented by: Discontinued Medications Fentanyl (Sublimaze) Confirm Administered Dose 100 mcg .ROUTE .STK-MED ONE Stop: 07/14/20 11:08 Last Admin: 07/15/20 08:39 Dose: Not Given Documented by: Fentanyl (Sublimaze) Confirm Administered Dose 100 mcg .ROUTE .STK-MED ONE Stop: 07/14/20 21:15 Last Admin: 07/15/20 08:39 Dose: Not Given Documented by: Hydroxyzine HCl (Atarax) 50 mg PO BEDTIME ONE Stop: 07/14/20 21:01 Ropivacaine (Naropin 0.2%) Confirm Administered Dose 100 mls @ as directed .ROUTE .STK-MED ONE Stop: 07/14/20 11:08 Last Admin: 07/15/20 08:39 Dose: Not Given Documented by: Ropivacaine (Naropin 0.2%) Confirm Administered Dose 100 mls @ as directed .ROUTE .STK-MED ONE Stop: 07/14/20 21:16 Last Admin: 07/15/20 08:37 Dose: Not Given Documented by: Misoprostol (Cytotec) 25 mcg VAG ONETIME PRN PRN Reason: Cervical Ripening Misoprostol (Cytotec) 25 mcg VAG Q4H PRN PRN Reason: Cervical Ripening Misoprostol (Cytotec) 25 mcg PO ONETIME ONE Stop: 07/14/20 06:42 Last Admin: 07/14/20 07:44 Dose: 25 mcg Documented by: - Exam General: Reports: Alert, Oriented, Cooperative, No Acute Distress Lungs: Reports: Clear to Auscultation, Normal Respiratory Effort Cardiovascular: Reports: Regular Rate, Regular Rhythm GI/Abdominal Exam: Soft, Non-Tender (Female) Exam: Deferred Rectal (Female) Exam: Deferred Back Exam: Reports: Normal Inspection, Full Range of Motion Extremities: Normal Inspection, Normal Range of Motion, Non-Tender, Normal Capillary Refill Skin: Reports: Warm, Dry, Intact Neurological: Reports: No New Focal Deficit, Normal Speech, Normal Tone, Sensation Intact Psy/Mental Status: Reports: Alert, Normal Affect, Normal Mood
[2020-07-16] MEDS: Ibuprofen 800 MG Tab PO PRN (08:31)
== END 2020-07-16 10:42 | disposition home or self-care (01) | DRG 807 ==
LOC: MW.OBCHECK 05:12 → MW.OB 05:27 → MW.OBCHECK 06:33 → OBSVTOIN 07-15 00:23 → MW.OB 07-15 02:46
PROVIDERS: ADMIT Obstetrics & Gynecology; ATTEND Obstetrics & Gynecology
PROC: 10E0XZZ Delivery of Products of Conception, External Approach (ICD-10-PCS; principal; 2020-07-15)
PROC: 0HQ9XZZ Repair Perineum Skin, External Approach (ICD-10-PCS; 2020-07-15)
PROC: 3E0R3BZ Introduction of Anesthetic Agent into Spinal Canal, Percutaneous Approach (ICD-10-PCS; 2020-07-15)
PROC: 00HU33Z Insertion of Infusion Device into Spinal Canal, Percutaneous Approach (ICD-10-PCS; 2020-07-15)
DX: O36.8130 Decreased fetal movements, third trimester, not applicable or unspecified (principal); Z37.0 Single live birth; O69.81X0 Labor and delivery complicated by cord around neck, without compression, not applicable or unspecified; Z3A.38 38 weeks gestation of pregnancy; O70.0 First degree perineal laceration during delivery
CPT/HCPCS: 01967; 36415; 51702; 59409; 85014; 85018; 85027; 86592; 86850; 86900; 86901; A9270-GY; J2590; J2795; J3010; J7120